=== PATIENT | male | born 1940 | race Hispanic/Latino ===

== ENCOUNTER 2017-07-08 23:38 | Emergency (ER) | payer MEDICARE, MEDICAID ==
--- NOTE | 2017-07-09 00:12 | Emergency Department Report ---
ED Fall HPI - General Chief Complaint: Fall Stated Complaint: FALL/HEAD INJURY Time Seen by Provider: 07/09/17 00:02 Source: EMS, old records reviewed Mode of arrival: Stretcher Limitations: Other - History of Present Illness Initial Comments: 77-year-old male with past medical history CVA, cognitive impairment, hypertension, and COPD presents to the hospital status post witnessed fall from a [facility] assisted. Fell striking the back of his head. He denies any pain. senior care confirms that the patient is at his baseline mental status and patient has cognitive impairment, impaired speech, and dysphagia . - Related Data Allergies Allergy/AdvReac Type Severity Reaction Status Date / Time No Known Allergies Allergy Verified 07/08/17 23:46 ED Review of Systems ROS: Stated complaint: FALL/HEAD INJURY Other details as noted in HPI Comment: Unobtainable due to pts medical conditions (cognitive impairment) ED Past Medical Hx - Past Medical History Hx Hypertension: Yes Hx CVA: Yes Hx COPD: Yes - Social History Smoking Status: Unknown if ever smoked Substance Use Type: None ED Physical Exam - General Limitations: Other - Other Other exam information: General: No limitations, patient is alert in no acute distress Head exam: Atraumatic, no hematoma or scalp tenderness Eyes exam: Normal appearance, pupils equal reactive to light ENT: Moist mucous membrane, normal oropharynx Neck exam: Normal inspection, full range of motion, no meningismus nontender Respiratory exam: Clear to auscultation bilateral, no wheezes, rales, crackles Cardiovascular: Normal rate and rhythm, midline sternotomy scar Abdomen: Soft, nondistended, vertical midline abdominal scar and nontender, with normal bowel sounds, no rebound, or guarding Extremity: Full range of motion normal inspection no deformity Back: Normal Inspection, full range of motion, no tenderness Neurologic: Alert, oriented a Amaya, no facial droop, mildly slurred speech 5/5 upper and lower extremity strength, sensation grossly intact Psychiatric: normal affect, normal mood Skin: No ecchymosis or contusion ED Course Vital Signs 07/08/17 07/09/17 23:39 00:21 Temperature 97.9 F Pulse Rate 67 Respiratory 18 16 Rate Blood Pressure 143/67 Blood Pressure 143/67 [Left] O2 Sat by Pulse 100 97 Oximetry ED Medical Decision Making - Radiology Data Radiology results: report reviewed ct head: chronic changes, no acute findings ct cervical spine: naf - Medical Decision Making Patient had a witnessed fall with occipital head injury at the assisted. No LOC reported. No signs of hematoma. CT head and cervical spine are unremarkable. senior care confirmed the patient is at his baseline mental status. He denies any pain. He will be sent back to assisted - Differential Diagnosis fall, contusion, fracture, ICH Critical Care Time: No Critical care attestation.: If time is entered above; I have spent that time in minutes in the direct care of this critically ill patient, excluding procedure time. ED Disposition Clinical Impression: Fall, Minor head injury Disposition: DC-01 TO HOME OR SELFCARE Is pt being admited?: No Does the pt Need Aspirin: No Condition: Stable Instructions: Fall Prevention for Older Adults (ED), Minor Head Injury (ED) Referrals: BAY GLEZ DO [Staff Physician] - 3-5 Days Time of Disposition: 02:42
--- NOTE | 2017-07-09 02:09 | Cat Scan Report ---
FINAL REPORT PROCEDURE: CT HEAD/BRAIN WO CON TECHNIQUE: Computerized tomography of the head was performed without contrast material. HISTORY: fall with head injury COMPARISON: No prior studies are available for comparison. FINDINGS: Skull and scalp: Normal. Paranasal sinuses: Normal. Ventricles and subarachnoid spaces: There is advanced central and cortical atrophy. There is no hydrocephalus or asymmetry.. Cerebrum: No evidence of hemorrhage, acute infarction or mass. There is no hemorrhage, edema, mass, mass effect or midline shift. Cerebellum and brainstem: No evidence of hemorrhage, acute infarction or mass. Vasculature: There is calcified plaque in the cavernous portions of the internal carotid arteries.. Comments: None. IMPRESSION: There are chronic involutional and ischemic changes. There is no hemorrhage, edema, mass, mass effect or midline shift.
--- NOTE | 2017-07-09 02:19 | Cat Scan Report ---
FINAL REPORT PROCEDURE: CT CERVICAL SPINE WO CON TECHNIQUE: Computerized tomography of the cervical spine was performed from the skull base to T1 without contrast material. HISTORY: fall with head injury COMPARISON: No prior studies are available for comparison. FINDINGS: The skull base and foramen magnum are intact. The cervical vertebrae are intact. There is normal cervical lordosis. There are no fractures or malalignments. The disc spaces are within normal limits. There is no facet dislocation. The prevertebral soft tissues are normal in thickness. IMPRESSION: No significant abnormality.
[2017-07-09 07:09] VITALS: BP 113/47
== END 2017-07-09 07:56 | disposition home or self-care (01) ==
LOC: ED 23:38
DX: S09.90XA Unspecified injury of head, initial encounter (principal); I10 Essential (primary) hypertension; J44.9 Chronic obstructive pulmonary disease, unspecified; Z86.73 Personal history of transient ischemic attack (TIA), and cerebral infarction without residual deficits; W18.30XA Fall on same level, unspecified, initial encounter; Y93.89 Activity, other specified; Y92.89 Other specified places as the place of occurrence of the external cause; Y99.8 Other external cause status
CPT/HCPCS: 70450; 72125; 99283

== ENCOUNTER 2017-08-12 16:06 | Inpatient (IN) | payer MEDICARE ==
--- NOTE | 2017-08-12 17:09 | Emergency Department Report ---
ED Altered Mental Status HPI - General Chief Complaint: Altered Mental Status Stated Complaint: FALL/ALTERED MENTAL STATUS Time Seen by Provider: 08/12/17 17:07 Source: patient Mode of arrival: Stretcher Limitations: Altered Mental Status - History of Present Illness Initial Comments: 77-year-old long-term patient sent for evaluation for altered mental status after sustaining fall approximately 5 days ago. Family reports that patient has history of dementia, and was placed in long-term almost a year ago after found wandering in his truck with progressive confusion, and was ordered into a long-term at that time. He has had progression of chronic confusion, but has generally been ambulatory, although family reports that he's been having increasing difficulty with ambulation, and has been falling, and that his bed has been placed at the lowest possible level, but the patient still has been falling. They found patient to be somewhat more confused, with more difficulty speaking, and were told that he had falling 5 days ago, with a contusion and ecchymosis to his right forehead and cheek, and bruising about both elbows, there was no clear-cut loss of consciousness, it was not clear if there was any change in mental status at that time, and family notes that patient was not sent for evaluation at that time. Family notes the patient primarily appears to be a little more confused, a little less oriented or awake, and speech is a little more dysarthric or frankly incoherent with significant mumbling. On my examination, patient is awake, and is able to give some generally appropriate answers to brief questions , but I am able to give any significant history other that he fell. Review of chart shows patient had similar episode in June 2017, with baseline dementia, also slurred speech noted at that time, with negative findings on CT scan and cervical spine CT scan. Complaint: altered mental status, confusion, decreased responsiveness -: days(s) (5) Severity: mild, moderate Consistency of Symptoms: constant Context: trauma (fall, low-level height, less than 1-2 feet) Associated Symptoms: other (elbow is bruised, nontender). denies: chest pain, cough, fever/chills, headaches, malaise, nausea/vomiting, shortness of breath - Related Data Allergies Allergy/AdvReac Type Severity Reaction Status Date / Time No Known Allergies Allergy Verified 07/08/17 23:46 ED Review of Systems ROS: Stated complaint: FALL/ALTERED MENTAL STATUS Other details as noted in HPI Comment: pertinent history obtained from family Constitutional: denies: chills, fever Eyes: denies: eye pain, eye discharge, vision change ENT: hearing loss (chronic), other (contusion to right forehead and cheek). denies: throat pain, congestion Respiratory: cough. denies: shortness of breath Cardiovascular: denies: chest pain Endocrine: unexplained weight loss (gradual, weeks to months). denies: excessive sweating, flushing, increased hunger, increased thirst, increased urine Gastrointestinal: denies: abdominal pain, nausea, vomiting Genitourinary: denies: urgency, dysuria Musculoskeletal: denies: myalgia Skin: other (abrasions to both elbows, contusion) Neurological: confusion (chronic, apparently worse), other (increased difficulty walking, since accident, but somewhat gradual decline since long-term placement) Psychiatric: other (chronic confusion, no anxiety or agitation) Hematological/Lymphatic: denies: easy bleeding ED Past Medical Hx - Past Medical History Previous Medical History?: Yes Hx Hypertension: Yes Hx CVA: Yes Hx COPD: Yes Hx Dementia: Yes (placed in long-term 10 months ago for chronic confusion) - Social History Smoking Status: Unknown if ever smoked ED Physical Exam - General Limitations: Altered Mental Status General appearance: other (appears sleeping, arouses easily, hard of hearing, able to make brief appropriate answers) - Head Head exam: Present: atraumatic, other (nontender, without laceration) - Eye Eye exam: Present: PERRL - ENT ENT exam: Present: other (ecchymosis right cheek area, with some extension towards the right lateral or head) - Neck Neck exam: Present: normal inspection, other (reduce movement, chronic, somewhat limited movement in all directions). Absent: tenderness - Respiratory Respiratory exam: Present: wheezes (rare), rhonchi (primarily with cough) - Cardiovascular Cardiovascular Exam: Present: regular rate (with intermittent and moderate PVC, PAC) - GI/Abdominal GI/Abdominal exam: Present: soft. Absent: distended, tenderness - Rectal Rectal exam: Present: deferred - Extremities Exam Extremities exam: Present: other (ecchymosis and superficial skin abrasions noted lateral epicondyle, both elbows, good range of motion). Absent: tenderness - Back Exam Back exam: Present: normal inspection. Absent: tenderness - Neurological Exam Neurological exam: Present: altered (awake in general responsive, confused in general, gives brief answers only) - Psychiatric Psychiatric exam: Present: other (quiet, somewhat withdrawn in general) - Skin Skin exam: Present: abrasion (both elbows), ecchymosis (both elbows, right cheek ) - Level of Consciousness 1a. Level of Consciousness: alert - LOC Questions 1b. LOC Questions: answers 1 question correctly - LOC Command 1c. LOC Commands: performs tasks correctly - Best Gaze 2. Best Gaze: normal - Visual 3. Visual: no visual loss - Facial Palsy 4. Facial Palsy: normal symmetrical movement - Motor Arm 5b. Motor Arm Right: no drift 5a. Motor Arm Left: no drift - Motor Leg 6a. Motor Leg Left: no drift 6b. Motor Leg Right: no drift - Limb Ataxia 7. Limb Ataxia: absent - Sensory 8. Sensory: normal - Best Language 9. Best Language: no aphasia - Dysarthria 10. Dysarthria: mild/moderate dysarthria (Primarily dysarthria, some confused speech.) - Extinction and Inattention 11. Extinction/Inattention: visual/tactile inattention (Mild) - Scoring Total Score: 3 Stroke Severity: Minor Stroke ED Course Vital Signs 08/12/17 08/12/17 08/12/17 16:15 16:16 16:31 Pulse Rate 85 86 103 H Respiratory 16 17 15 Rate Blood Pressure 134/77 134/77 143/77 O2 Sat by Pulse 93 97 Oximetry 08/12/17 08/12/17 08/12/17 16:45 17:01 17:15 Pulse Rate 89 81 82 Respiratory 18 13 12 Rate Blood Pressure 143/77 144/75 144/75 O2 Sat by Pulse 95 90 Oximetry 08/12/17 17:40 Pulse Rate Respiratory 18 Rate Blood Pressure O2 Sat by Pulse 96 Oximetry - Reevaluation(s) Reevaluation #1: 08/12/17 18:59 Patient is clinically stable, sleeping at time of evaluation, respirations are stable, with oxygen saturation of 92% on 2 L of oxygen. I discussed findings suggestive of right lower lobe pneumonia and significant inflammation on white count, with need for hospitalization and IV antibiotics. Initial fluid hydration begun, but given patient's generally debilitated state and advanced COPD, I don't believe that he would tolerate a full sepsis rehydration protocol of 30 mL/kg without developing significant pulmonary congestion. 08/12/17 19:00 - Consultations Consultation #1: 08/12/17 19:07 Dr. Narayanan, hospitalist sanitation superintendent contacted with findings of right lower lobe pneumonia and negative evaluation for acute trauma as cause of altered mental status, patient appears to be neurologically stable, primarily by current examination and comparison with previous visit for fall 1 month ago. However, patient has a right lower lobe pneumonia, with an elevated white count of 13,400 , and significant bandemia of 70 segs and 25 bands. He accepts patient and will come to see, and blood cultures have been drawn and lactic acid levels drawn as well. Modest fluid rehydration ordered, with 500 mL, as given patient' s age and fragile general physical status, I don't believe that he would tolerate a full 30 mL/kg rehydration for sepsis measures. - Lab Data Result diagrams: 08/12/17 17:18 08/12/17 17:18 Lab Results 08/12/17 08/12/17 08/12/17 Range/Units 16:50 16:50 17:18 WBC 13.4 H (4.5-11.0) K/mm3 RBC 4.07 (3.65-5.03) M/mm3 Hgb 12.3 (11.8-15.2) gm/dl Hct 38.1 (35.5-45.6) % MCV 94 (84-94) fl MCH 30 (28-32) pg MCHC 32 (32-34) % RDW 14.2 (13.2-15.2) % Plt Count 132 L (140-440) K/mm3 Add Manual Diff Complete Total Counted 100 Seg Neutrophils % Associate Financial Analyst Seg Neuts % (Manual) 70.0 (40.0-70.0) % Band Neutrophils % 25.0 % Lymphocytes % (Manual) 1.0 L (13.4-35.0) % Reactive Lymphs % (Man) 0 % Monocytes % (Manual) 4.0 (0.0-7.3) % Eosinophils % (Manual) 0 (0.0-4.3) % Basophils % (Manual) 0 (0.0-1.8) % Metamyelocytes % 0 % Myelocytes % 0 % Promyelocytes % 0 % Blast Cells % 0 % Nucleated RBC % Not Reportable Seg Neutrophils # Man 9.4 H (1.8-7.7) K/mm3 Band Neutrophils # 3.4 K/mm3 Lymphocytes # (Manual) 0.1 L (1.2-5.4) K/mm3 Abs React Lymphs (Man) 0.0 K/mm3 Monocytes # (Manual) 0.5 (0.0-0.8) K/mm3 Eosinophils # (Manual) 0.0 (0.0-0.4) K/mm3 Basophils # (Manual) 0.0 (0.0-0.1) K/mm3 Metamyelocytes # 0.0 K/mm3 Myelocytes # 0.0 K/mm3 Promyelocytes # 0.0 K/mm3 Blast Cells # 0.0 K/mm3 WBC Morphology Not Reportable Hypersegmented Neuts Not Reportable Hyposegmented Neuts Not Reportable Hypogranular Neuts Not Reportable Smudge Cells Not Reportable Toxic Granulation Not Reportable Toxic Vacuolation Not Reportable Dohle Bodies Not Reportable Pelger-Huet Anomaly Not Reportable Hugh Rods Not Reportable Platelet Estimate Consistent w auto Clumped Platelets Not Reportable Plt Clumps, EDTA Not Reportable Large Platelets Not Reportable Giant Platelets Not Reportable Platelet Satelliting Not Reportable Plt Morphology Comment Not Reportable RBC Morphology Normal Dimorphic RBCs Not Reportable Polychromasia Not Reportable Hypochromasia Not Reportable Poikilocytosis Not Reportable Anisocytosis Not Reportable Microcytosis Not Reportable Macrocytosis Not Reportable Spherocytes Not Reportable Pappenheimer Bodies Not Reportable Sickle Cells Not Reportable Target Cells Not Reportable Tear Drop Cells Not Reportable Ovalocytes Not Reportable Helmet Cells Not Reportable [place] Bodies Not Reportable [place] Rings Not Reportable [place] Cells Not Reportable Bite Cells Not Reportable Crenated Cell Not Reportable Elliptocytes Not Reportable Acanthocytes (Spur) Not Reportable Rouleaux Not Reportable Hemoglobin C Crystals Not Reportable Schistocytes Not Reportable Malaria parasites Not Reportable [place] Bodies Not Reportable Hem Pathologist Commnt No Sodium (137-145) mmol/L Potassium (3.6-5.0) mmol/L Chloride (98-107) mmol/L Carbon Dioxide (22-30) mmol/L Anion Gap mmol/L BUN (9-20) mg/dL Creatinine (0.8-1.5) mg/dL Estimated GFR ml/min BUN/Creatinine Ratio % Glucose (75-100) mg/dL Calcium (8.4-10.2) mg/dL Total Bilirubin (0.1-1.2) mg/dL AST (5-40) units/L ALT (7-56) units/L Alkaline Phosphatase (35-129) units/L Total Protein (6.3-8.2) g/dL Albumin (3.9-5) g/dL Albumin/Globulin Ratio % TSH (0.270-4.200) mlU/mL Urine Color Yellow (Yellow) Urine Turbidity Clear (Clear) Urine pH 5.0 (5.0-7.0) Ur Specific [place] 1.019 (1.003-1.030) Urine Protein 100 mg/dl (Negative) mg/dL Urine Glucose (UA) 50 (Negative) mg/dL Urine Ketones Neg (Negative) mg/dL Urine Blood Mod (Negative) Urine Nitrite Neg (Negative) Urine Bilirubin Neg (Negative) Urine Urobilinogen < 2.0 (<2.0) mg/dL Ur Leukocyte Esterase Sm (Negative) Urine WBC (Auto) 24.0 H (0.0-6.0) /HPF Urine RBC (Auto) 13.0 (0.0-6.0) /HPF Urine Bacteria (Auto) 4+ (Negative) /HPF Urine Mucus 3+ /HPF Urine Opiates Screen Presumptive negative Urine Methadone Screen Presumptive negative Ur Barbiturates Screen Presumptive negative Ur Phencyclidine Scrn Presumptive negative Ur Amphetamines Screen Presumptive negative U Benzodiazepines Scrn Presumptive negative Urine Cocaine Screen Presumptive negative U Marijuana (THC) Screen Presumptive negative Drugs of Abuse Note Disclamer Plasma/Serum Alcohol (0-0.07) % 08/12/17 08/12/17 08/12/17 Range/Units 17:18 17:18 17:18 WBC (4.5-11.0) K/mm3 RBC (3.65-5.03) M/mm3 Hgb (11.8-15.2) gm/dl Hct (35.5-45.6) % MCV (84-94) fl MCH (28-32) pg MCHC (32-34) % RDW (13.2-15.2) % Plt Count (140-440) K/mm3 Add Manual Diff Total Counted Seg Neutrophils % Seg Neuts % (Manual) (40.0-70.0) % Band Neutrophils % % Lymphocytes % (Manual) (13.4-35.0) % Reactive Lymphs % (Man) % Monocytes % (Manual) (0.0-7.3) % Eosinophils % (Manual) (0.0-4.3) % Basophils % (Manual) (0.0-1.8) % Metamyelocytes % % Myelocytes % % Promyelocytes % % Blast Cells % % Nucleated RBC % Seg Neutrophils # Man (1.8-7.7) K/mm3 Band Neutrophils # K/mm3 Lymphocytes # (Manual) (1.2-5.4) K/mm3 Abs React Lymphs (Man) K/mm3 Monocytes # (Manual) (0.0-0.8) K/mm3 Eosinophils # (Manual) (0.0-0.4) K/mm3 Basophils # (Manual) (0.0-0.1) K/mm3 Metamyelocytes # K/mm3 Myelocytes # K/mm3 Promyelocytes # K/mm3 Blast Cells # K/mm3 WBC Morphology Hypersegmented Neuts Hyposegmented Neuts Hypogranular Neuts Smudge Cells Toxic Granulation Toxic Vacuolation Dohle Bodies Pelger-Huet Anomaly Hugh Rods Platelet Estimate Clumped Platelets Plt Clumps, EDTA Large Platelets Giant Platelets Platelet Satelliting Plt Morphology Comment RBC Morphology Dimorphic RBCs Polychromasia Hypochromasia Poikilocytosis Anisocytosis Microcytosis Macrocytosis Spherocytes Pappenheimer Bodies Sickle Cells Target Cells Tear Drop Cells Ovalocytes Helmet Cells [place] Bodies [place] Rings [place] Cells Bite Cells Crenated Cell Elliptocytes Acanthocytes (Spur) Rouleaux Hemoglobin C Crystals Schistocytes Malaria parasites [place] Bodies Hem Pathologist Commnt Sodium 134 L (137-145) mmol/L Potassium 4.3 (3.6-5.0) mmol/L Chloride 95.4 L (98-107) mmol/L Carbon Dioxide 22 (22-30) mmol/L Anion Gap 21 mmol/L BUN 48 H (9-20) mg/dL Creatinine 1.9 H (0.8-1.5) mg/dL Estimated GFR 35 ml/min BUN/Creatinine Ratio 25 % Glucose 135 H (75-100) mg/dL Calcium 8.7 (8.4-10.2) mg/dL Total Bilirubin 0.40 (0.1-1.2) mg/dL AST 26 (5-40) units/L ALT 29 (7-56) units/L Alkaline Phosphatase 108 (35-129) units/L Total Protein 6.4 (6.3-8.2) g/dL Albumin 3.2 L (3.9-5) g/dL Albumin/Globulin Ratio 1.0 % TSH 1.340 (0.270-4.200) mlU/mL Urine Color (Yellow) Urine Turbidity (Clear) Urine pH (5.0-7.0) Ur Specific [place] (1.003-1.030) Urine Protein (Negative) mg/dL Urine Glucose (UA) (Negative) mg/dL Urine Ketones (Negative) mg/dL Urine Blood (Negative) Urine Nitrite (Negative) Urine Bilirubin (Negative) Urine Urobilinogen (<2.0) mg/dL Ur Leukocyte Esterase (Negative) Urine WBC (Auto) (0.0-6.0) /HPF Urine RBC (Auto) (0.0-6.0) /HPF Urine Bacteria (Auto) (Negative) /HPF Urine Mucus /HPF Urine Opiates Screen Urine Methadone Screen Ur Barbiturates Screen Ur Phencyclidine Scrn Ur Amphetamines Screen U Benzodiazepines Scrn Urine Cocaine Screen U Marijuana (THC) Screen Drugs of Abuse Note Plasma/Serum Alcohol < 0.01 (0-0.07) % - EKG Data -: EKG Interpreted by Me EKG shows normal: sinus rhythm (poor technical quality, no acute findings, significant primarily for LVH, PVC, PACs), axis (QRS axis 12), intervals ( regular at baseline with intermittent PVCs), QRS complexes (neuro complex with occasional PVC, PAC), ST-T waves (no specific changes, no STEMI identified) Rate: normal - Radiology Data Radiology results: image reviewed (chest x-ray shows a right lower lobe pneumonia) interpreted by me: Both elbow films negative for acute fracture or dislocation. CT scan of brain shows no acute fracture or acute intracranial process CT scan of face also shows no acute fracture - Medical Decision Making This elderly man, with baseline dementia, has suffered deterioration of mental status, which was initially felt to be due to fall, but trauma evaluation is negative given stable CT scan of the head and face, with no acute fractures and no acute intracranial pathology, although prior left mid parietal stroke has been seen with volume loss and encephalomalacia. However, patient has right lower lobe pneumonia with a new infiltrate in the right lower lobe of the lung, with elevated white count and significant bandemia. This is likely cause of patient's decline in mental status. He will need hospitalization, with IV antibiotics area initial blood pressures were drawn, along with lactic acid levels, and Dr. Narayanan will evaluate patient and provide additional care from there. - Differential Diagnosis traumatic brain injury, subdural hematoma, dehydration, progression of mone - NEXUS Criteria Focal neurological deficit present: No Midline spinal tenderness present: No Altered level of consciousness: Yes Intoxication present: No Distracting injury present: No NEXUS results: C-Spine cannot be cleared clinically by these results. Imaging is required. Critical Care Time: Yes Critical care attestation.: If time is entered above; I have spent that time in minutes in the direct care of this critically ill patient, excluding procedure time. Critical Care Time: 30 minutes of critical care time, exclusive of any procedures ED Disposition Clinical Impression: Elbow abrasion, non-infected Pneumonia Qualifiers: Pneumonia type: due to unspecified organism Laterality: right Lung location: lower lobe of lung Qualified Code(s): J18.1 - Lobar pneumonia, unspecified organism Dementia Qualifiers: Dementia type: unspecified type Dementia behavioral disturbance: without behavioral disturbance Qualified Code(s): F03.90 - Unspecified dementia without behavioral disturbance Contusion of face Qualifiers: Encounter type: initial encounter Qualified Code(s): S00.83XA - Contusion of other part of head, initial encounter Disposition: 09 OP ADMIT IP TO THIS HOSP Is pt being admited?: Yes Does the pt Need Aspirin: No Condition: Fair Instructions: Bacterial Pneumonia (ED) Referrals: PRIMARY CARE, [Primary Care Provider] - 3-5 Days Time of Disposition: 19:12
[2017-08-12 17:13] LABS: Bacteria,Urine 4+ /HPF (Negative); Bilirubin,Urine NEG (Negative); Blood,Urine MOD (Negative); Color,Urine Yellow (Yellow); Mucus,Urine 3+ /HPF; Urobilinogen,Urine < 2.0 mg/dL (<2.0)
[2017-08-12 17:22] LABS: Amphetamine Screen,Urine PRESUMPTIVE NEGATIVE; Benzodiazepines Screen,Urine PRESUMPTIVE NEGATIVE; Cannabinoid Screen,Urine PRESUMPTIVE NEGATIVE; Cocaine Screen,Urine PRESUMPTIVE NEGATIVE; Methadone Screen,Urine PRESUMPTIVE NEGATIVE; Opiate Screen,Urine PRESUMPTIVE NEGATIVE
[2017-08-12 17:28] LABS: Hematocrit 38.1 % (35.5-45.6); Hemoglobin 12.3 gm/dl (11.8-15.2); Mean Corpuscular HGB Conc 32 % (32-34); Mean Corpuscular Hemoglobin 30 pg (28-32); Mean Corpuscular Volume 94 fl (84-94); Platelet Count 132 K/mm3 (140-440); Red Blood Count 4.07 M/mm3 (3.65-5.03); Red Cell Distribution Width 14.2 % (13.2-15.2)
[2017-08-12 17:51] LABS: Albumin 3.2 g/dL (3.9-5); Calcium 8.7 mg/dL (8.4-10.2)
[2017-08-12 18:09] LABS: Band Neutrophils # (Manual) 3.4 K/mm3; Basophils % (Manual) 0 % (0.0-1.8); Eosinophils % (Manual) 0 % (0.0-4.3); Total Cells Counted 100
[2017-08-12 18:18] LABS: Platelet Estimate Consistent w Auto; RBC Morphology Normal
--- NOTE | 2017-08-12 18:23 | Cat Scan Report ---
FINAL REPORT EXAM: CT HEAD/BRAIN WO CON HISTORY: AMS, s/p fall 5 days TECHNIQUE: Noncontrast CT axial images of the brain. PRIORS: 08 July 2017. FINDINGS: No parenchymal mass, mass effect, hemorrhage, midline shift or hydrocephalus. No evidence of acute cortical infarct. No abnormal, extra-axial fluid or air collection. Mild, patchy low density in the periventricular and subcortical white matter is nonspecific, but may relate to chronic small vessel ischemic change. Diffuse volume loss. Osseous calvarium grossly intact. IMPRESSION: 1. No acute intracranial findings. 2. Chronic ischemic and atrophic changes.
--- NOTE | 2017-08-12 18:26 | Cat Scan Report ---
FINAL REPORT EXAM: CT FACIAL BONES WO CON HISTORY: trauma, fall TECHNIQUE: Spiral CT scanning of the facial bones with multiplanar reformations. PRIORS: None. FINDINGS: No acute fracture. Mandible, zygomatic arches, orbits, paranasal sinuses, and pterygoid plates appear intact. Optic globes grossly intact. IMPRESSION: 1. No acute fracture.
[2017-08-12] MEDS ORDERED: NACL 0.9% 500 ML 500 ML IV ONE (18:50)
--- NOTE | 2017-08-12 19:09 | History and Physical Report ---
History of Present Illness Chief complaint: Confusion History of present illness: 77 YO Male [employer] Resident with Dementia, Debility, HTN, CVA with RHP, COPD presents to ED for evaluation. Pt confused and unable to provide detailed history. Pt history taken from ED staff, EMS, and family who is at bedside. As per family, the patient has experienced progressive confusion and weakness over the past 3 weeks, with worsening symptoms over the past 5 days which resulted in a fall 5 days ago. Pt sustained contusion with ecchymosis to the right forehead and cheek. Pt family denies reports of fever, chills, CP, Palpitations , NVD, syncope, BRBPR, or skin rashes. Pt seen and evaluated in ED and found to have evidence of sepsis suspected secondary to RLL Pneumonia, UTI and Acute Renal Failure. Pt is confused but is able to protect his airway. Pt initiated on Sepsis protocol. Past History Past Medical History: COPD, hypertension, stroke, other (Dementia) Past Surgical History: No surgical history, Other (reviewed) Social history: single. denies: smoking, alcohol abuse, prescription drug abuse Family history: no significant family history (reviewed) Medications and Allergies Allergies Allergy/AdvReac Type Severity Reaction Status Date / Time No Known Allergies Allergy Verified 07/08/17 23:46 Home Medications Medication Instructions Recorded Confirmed Last Taken Type ALBUTEROL NEB's [Proventil] 2.5 mg IH Q4HR PRN 08/12/17 08/12/17 Unknown History Acetaminophen 325 mg PO Q4HR PRN 08/12/17 08/12/17 Unknown History Aspirin 81 mg PO QDAY 08/12/17 08/12/17 Unknown History Donepezil [Aricept] 10 mg PO QHS 08/12/17 08/12/17 Unknown History Mirtazapine 15 mg PO QHS 08/12/17 08/12/17 Unknown History Sennosides [Senna] 8.6 mg PO QHS 08/12/17 08/12/17 Unknown History Simvastatin [Zocor TAB] 10 mg PO QHS 08/12/17 08/12/17 Unknown History Temazepam [Restoril] 15 mg PO QHS 08/12/17 08/12/17 Unknown History amLODIPine [Norvasc] 10 mg PO DAILY 08/12/17 08/12/17 Unknown History Active Meds: Active Medications Sodium Chloride (Nacl 0.9% 500 Ml) 500 mls @ 999 mls/hr IV ONCE ONE Stop: 08/12/17 19:20 Last Admin: 08/12/17 19:05 Dose: 999 mls/hr Review of Systems ROS unobtainable: due to mental status Exam - Constitutional Vitals: Temp Pulse Resp BP Pulse Ox 82 18 144/75 96 08/12/17 17:15 08/12/17 17:40 08/12/17 17:15 08/12/17 17:40 General appearance: Present: mild distress - EENT Eyes: Present: PERRL ENT: hearing intact, clear oral mucosa - Neck Neck: Present: supple, normal ROM - Respiratory Respiratory effort: normal Respiratory: bilateral: diminished, rhonchi - Cardiovascular Heart Sounds: Present: S1 & S2. Absent: rub, click - Extremities Extremities: pulses symmetrical, No edema Peripheral Pulses: abnormal (capillary refill greater than 3.6 seconds.) - Abdominal General gastrointestinal: Present: soft, non-tender, non-distended, normal bowel sounds Male genitourinary: Present: normal - Integumentary Integumentary: Present: clear, warm, dry - Musculoskeletal Musculoskeletal: right sided weakness - Psychiatric Psychiatric: no intact judgment & insight, no memory intact - Neurologic Neurologic: focal deficits, no moves all extremities, no gait normal Results - Labs CBC & Chem 7: 08/12/17 17:18 08/12/17 17:18 Labs: Abnormal lab results 08/12/17 08/12/17 08/12/17 Range/Units 16:50 17:18 17:18 WBC 13.4 H (4.5-11.0) K/mm3 Plt Count 132 L (140-440) K/mm3 Lymphocytes % (Manual) 1.0 L (13.4-35.0) % Seg Neutrophils # Man 9.4 H (1.8-7.7) K/mm3 Lymphocytes # (Manual) 0.1 L (1.2-5.4) K/mm3 Sodium 134 L (137-145) mmol/L Chloride 95.4 L (98-107) mmol/L BUN 48 H (9-20) mg/dL Creatinine 1.9 H (0.8-1.5) mg/dL Glucose 135 H (75-100) mg/dL Albumin 3.2 L (3.9-5) g/dL Urine WBC (Auto) 24.0 H (0.0-6.0) /HPF Assessment and Plan - Patient Problems (1) Respiratory failure Current Visit: Yes Status: Acute Qualifiers: Chronicity: acute Respiratory failure complication: hypoxia Qualified Code(s): J96.01 - Acute respiratory failure with hypoxia Plan to address problem: Pt intubated, placed on vent support, Pulmonary consulted, wean vent as tolerated, daily ABG, sedation holiday, daily SBT, The high probability of a clinically significant, sudden or life threatening deterioration of the[Cardiac, pulmonary, renal] system(s) required my full and direct attention, intervention and personal management. The aggregate critical care time was [65] minutes. This time is in addition to time spent performing reported procedures but includes the following: [x] Data Review and interpretation [x] Patient assessment and monitoring of vital signs [x] Documentation [x] Medication orders and management (2) Sepsis Current Visit: Yes Status: Acute Qualifiers: Sepsis type: sepsis due to unspecified organism Qualified Code(s): A41.9 - Sepsis, unspecified organism Plan to address problem: Sepsis protocol: IV antibiotics, IVF resuscitation, monitor uop q shift, supplemental oxygen, nebulizer therapy, serial lactic acid levels, blood cultures, Chest X ray, CBC (3) Pneumonia Current Visit: Yes Status: Acute Qualifiers: Laterality: right Lung location: lower lobe of lung Plan to address problem: IV antibiotics, supplemental oxygen, nebulizer therapy, Chest x ray, blood cultures, NIPPV as clinically indicated (4) ARF (acute renal failure) Current Visit: Yes Status: Acute Qualifiers: Acute renal failure type: with acute tubular necrosis Qualified Code(s): N17.0 - Acute kidney failure with tubular necrosis Plan to address problem: IVF resuscitation, monitor uop q shift, monitor serum creatnine. (5) Encephalopathy Current Visit: Yes Status: Acute Plan to address problem: CT head, neuro checks, treat sepsis, (6) UTI (urinary tract infection) Current Visit: Yes Status: Acute Qualifiers: Encounter type: initial encounter Plan to address problem: IV antibiotics, blood cultures, supportive care. (7) DVT prophylaxis Current Visit: Yes Status: Acute Plan to address problem: SCD to ble while in bed,
[2017-08-12] MEDS ORDERED: ZOFRAN IV PRN (19:11)
[2017-08-12] MEDS ORDERED: PROVENTIL IH PRN (19:11)
[2017-08-12] MEDS ORDERED: SODIUM CHLORIDE FLUSH SYRINGE 10 ML IV PRN (19:11)
[2017-08-12] MEDS ORDERED: TYLENOL PO PRN (19:11)
[2017-08-12] MEDS ORDERED: NACL 0.9% 1000 ML IV ONE (19:13)
[2017-08-12] MEDS ORDERED: ROCEPHIN/NS 1 GM/50 ML 1 GM/50 ML BAG IV ONE (19:48)
--- NOTE | 2017-08-12 19:57 | XRay Report ---
FINAL REPORT EXAM: XR CHEST 1V AP HISTORY: cough TECHNIQUE: Single, portable chest x-ray. PRIORS: None. FINDINGS: Patient rotated to the right. Postsurgical changes project over the heart. Tortuous and partially calcified thoracic aorta. Cardiac silhouette within normal limits. Lungs show patchy and partially confluent opacities projected over right lower lung. No other focal consolidation or apparent pneumothorax. IMPRESSION: 1. Right lower lung patchy opacities or infiltrate, which may represent acute inflammatory process. Clinical correlation and radiographic followup after 4-6 weeks advised to document resolution.
--- NOTE | 2017-08-12 19:58 | XRay Report ---
FINAL REPORT EXAM: XR ELBOW 2V RT HISTORY: injury, fall TECHNIQUE: Frontal and lateral views of right elbow. PRIORS: None. FINDINGS: Mild marginal spurring off medial and lateral humeral epicondyles. No apparent fracture or dislocation. No abnormal fat pad sign. Soft tissues grossly unremarkable. IMPRESSION: 1. No acute osseous abnormality. 2. Degenerative changes.
[2017-08-12] MEDS ORDERED: cefTRIAXone 1 GM in NACL 0.9% 20 ML IV ONE (20:00)
--- NOTE | 2017-08-12 20:01 | XRay Report ---
FINAL REPORT EXAM: XR ELBOW 2V LT HISTORY: fall, injury TECHNIQUE: Single, portable chest x-ray. PRIORS: Earlier on same date at 1903 hours. FINDINGS: Patient rotated to the right. Postsurgical changes again project over the heart. Tortuous and partially calcified thoracic aorta. Cardiac silhouette within normal limits. Lungs again show patchy and partially confluent opacities projected over right lower lung. No other focal consolidation or apparent pneumothorax. Bony thorax without acute osseous abnormality. IMPRESSION: 1. Right lower lung patchy opacities or infiltrate, which may represent acute inflammatory process similar to comparison. Clinical correlation and radiographic followup after 4-6 weeks advised to document resolution.
[2017-08-12] MEDS ORDERED: NACL 0.9% 1000 ML 1,000 ML ONE (20:29)
--- NOTE | 2017-08-12 22:58 | Event Note ---
Date: 08/12/17 Code met was called on patient just as he was brought up from emergency room for admission, the nurse noted that patient was less responsive without the O2 saturation detected. On arrival at patient's room, patient was found to be obtunded and was being attended by the respiratory therapist who was administering oxygen to patient and vital signs shows difficult to detect oxygen saturation with heart rate running up to 90 to100 . Patient was intubated because of decreased responsiveness and transferred to the unit, sedation will be maintained with propofol IV and ABG has been ordered. Patient will continue IV antibiotic for the treatment of pneumonia that was ordered for his admission.
[2017-08-12] MEDS ORDERED: ARTIFICIAL TEARS OPHTH OINT OU PRN (23:14)
[2017-08-12] MEDS ORDERED: VASELINE LIP THERAPY TP PRN (23:14)
[2017-08-12] MEDS ORDERED: NACL 0.9% 500 ML IV SCH (23:45)
[2017-08-13] MEDS: DIPRIVAN 10 MG/ML 1,000 MG/100 ML BOTTLE IV SCH ×2 (00:15→12:37)
[2017-08-13] MEDS: SODIUM CHLORIDE FLUSH SYRINGE 10 ML IV SCH ×3 (00:27→22:30)
--- NOTE | 2017-08-13 00:40 | XRay Report ---
FINAL REPORT EXAM: XR CHEST 1V AP HISTORY: INTUBATION TECHNIQUE: Single AP portable radiograph of the chest was obtained. PRIORS: Chest radiograph from earlier the same day. FINDINGS: Interval placement of an endotracheal tube, tip is located 4.7 cm proximal to the talita. Right lower lobe consolidation with probable small effusion noted. Left lung is hyperexpanded without focal consolidation or, pleural effusion or pneumothorax. Marked tortuosity and atherosclerotic vascular calcifications of the aorta. Median sternotomy and coronary artery bypass grafting changes. Diffuse decreased osseous mineralization, no acute osseous abnormality is identified. IMPRESSION: Interval endotracheal tube placement, the tip is located 4.7 cm proximal to the talita. Right lower lobe consolidation, findings appear mildly increased from the comparison exam. Left lung is clear noting hyperinflation.
[2017-08-13] MEDS: ZITHROMAX 500 MG in NACL 0.9% 250ML 250 ML IV SCH (09:27)
[2017-08-13] MEDS ORDERED: ROCEPHIN/NS 1 GM/50 ML 1 GM/50 ML BAG IV SCH (10:00)
[2017-08-13] MEDS ORDERED: PEPCID IV SCH (10:00)
--- NOTE | 2017-08-13 12:54 | Consultation ---
History of Present Illness Consult date: 08/13/17 History of present illness: Called to evaluate case of a 77-year-old male, currently intubated at the ICU, after the patient was transferred from the medical servin intubated. Somewhat responsive but on propofol sedation so history is obtained from staff and chart review. Per record, " 77 YO Male [facility] Resident with Dementia, Debility, HTN, CVA with RHP, COPD presents to ED for evaluation. Pt confused and unable to provide detailed history. Pt history taken from ED staff, EMS, and family who is at bedside. As per family, the patient has experienced progressive confusion and weakness over the past 3 weeks, with worsening symptoms over the past 5 days which resulted in a fall 5 days ago. Pt sustained contusion with ecchymosis to the right forehead and cheek. Pt family denies reports of fever, chills, CP, Palpitations, NVD, syncope, BRBPR, or skin rashes. Pt seen and evaluated in ED and found to have evidence of sepsis suspected secondary to RLL Pneumonia, UTI and Acute Renal Failure. Pt is confused but is able to protect his airway. Pt initiated on Sepsis protocol". Once the medical servin, the patient became distressed and obtunded. In view of poor oxygen saturation and for aggressive distress, he was intubated and then transferred to the ICU. We are asked to review for her pulmonary ICU management No family members available at the bedside Past History Past Medical History: COPD, hypertension, stroke, other (Dementia) Past Surgical History: No surgical history, Other (reviewed) Social history: single. denies: smoking, alcohol abuse, prescription drug abuse Family history: no significant family history (reviewed) Medications and Allergies Allergies Allergy/AdvReac Type Severity Reaction Status Date / Time No Known Allergies Allergy Verified 07/08/17 23:46 Home Medications Medication Instructions Recorded Confirmed Last Taken Type ALBUTEROL NEB's [Proventil] 2.5 mg IH Q4HR PRN 08/12/17 08/12/17 Unknown History Acetaminophen 325 mg PO Q4HR PRN 08/12/17 08/12/17 Unknown History Aspirin 81 mg PO QDAY 08/12/17 08/12/17 Unknown History Donepezil [Aricept] 10 mg PO QHS 08/12/17 08/12/17 Unknown History Mirtazapine 15 mg PO QHS 08/12/17 08/12/17 Unknown History Sennosides [Senna] 8.6 mg PO QHS 08/12/17 08/12/17 Unknown History Simvastatin [Zocor TAB] 10 mg PO QHS 08/12/17 08/12/17 Unknown History Temazepam [Restoril] 15 mg PO QHS 08/12/17 08/12/17 Unknown History amLODIPine [Norvasc] 10 mg PO DAILY 08/12/17 08/12/17 Unknown History Active Meds: Active Medications Acetaminophen (Tylenol) 650 mg PO Q4H PRN PRN Reason: Pain MILD(1-3)/Fever >100.5/PARDO Albuterol (Proventil) 2.5 mg IH Q4HRT PRN PRN Reason: Shortness Of Breath Famotidine (Pepcid) 20 mg IV DAILY [facility] Last Admin: 08/13/17 09:29 Dose: 20 mg Hydrophilic Ointment (Vaseline Lip Therapy) 1 applic TP Q2HR PRN PRN Reason: Dry Lips Azithromycin 500 mg/ Sodium (Chloride) 250 mls @ 250 mls/hr IV Q24HR ROSSANA; Protocol Last Admin: 08/13/17 09:27 Dose: 250 mls/hr Propofol (Diprivan 10 Mg/Ml) 1,000 mg in 100 mls @ 1.769 mls/hr IV TITR ROSSANA; Protocol Last Admin: 08/13/17 12:37 Dose: 12.71 mcg/kg/min, 4.5 mls/hr Sodium Chloride (Nacl 0.9% 1000 Ml) 1,000 mls @ 75 mls/hr IV DIRECT ROSSANA Last Admin: 08/13/17 00:00 Dose: 75 mls/hr Ceftriaxone Sodium 1 gm/ (Sodium Chloride) 20 mls @ 2 mls/min IV Q24HR [facility] Multi-Ingred Cream/Lotion/Oil/Oint (Artificial Tears Ophth Oint) 1 applic OU Q4HR PRN PRN Reason: Dry Eye(s) Ondansetron HCl (Zofran) 4 mg IV Q8H PRN PRN Reason: Nausea And Vomiting Sodium Chloride (Sodium Chloride Flush Syringe 10 Ml) 10 ml IV BID [facility] Last Admin: 08/13/17 09:27 Dose: 10 ml Sodium Chloride (Sodium Chloride Flush Syringe 10 Ml) 10 ml IV PRN PRN PRN Reason: LINE FLUSH Sodium Chloride (Nacl 0.9% 500 Ml) 1 ml IV DIRECT ROSSANA Review of Systems ROS unobtainable: due to endotracheal tube, due to mental status Physical Examination Vital signs: Vital Signs Pulse Resp BP 85 16 134/77 08/12/17 16:15 08/12/17 16:15 08/12/17 16:15 General appearance: no acute distress, appears uncomfortable Eyes: non-icteric ENT: oropharynx moist Neck: supple, no JVD Ascultation: Right: rales, rhonchi, Left: clear Cardiovascular: regular rate and rhythm Gastrointestinal: normoactive bowel sounds, non-distended Integumentary: normal Extremities: no cyanosis Musculoskeletal: no deformities non-focal exam, other (on 4 point restraints, RASS 0 to -1) Results - Laboratory Findings CBC and BMP: 08/12/17 17:18 08/12/17 17:18 ABG POC ABG pH 7.337 (7.35-7.45) L 08/13/17 04:27 POC ABG pCO2 34.5 (35-45) L 08/13/17 04:27 POC ABG pO2 105 (80-105) 08/13/17 04:27 POC ABG HCO3 18.5 08/13/17 04:27 POC ABG Total CO2 20 08/13/17 04:27 POC ABG O2 Sat 98 08/13/17 04:27 Abnormal lab findings: Abnormal Labs 08/12/17 08/12/17 08/12/17 16:50 17:18 17:18 WBC 13.4 H Plt Count 132 L Lymphocytes % (Manual) 1.0 L Seg Neutrophils # Man 9.4 H Lymphocytes # (Manual) 0.1 L POC ABG pH POC ABG pCO2 Sodium 134 L Chloride 95.4 L BUN 48 H Creatinine 1.9 H Glucose 135 H POC Glucose Lactic Acid Albumin 3.2 L Urine WBC (Auto) 24.0 H 08/12/17 08/12/17 08/12/17 18:53 18:59 21:57 WBC Plt Count Lymphocytes % (Manual) Seg Neutrophils # Man Lymphocytes # (Manual) POC ABG pH POC ABG pCO2 Sodium Chloride BUN Creatinine Glucose POC Glucose 149 H 189 H Lactic Acid 3.10 H* Albumin Urine WBC (Auto) 08/12/17 08/12/17 08/13/17 22:46 23:04 04:27 WBC Plt Count Lymphocytes % (Manual) Seg Neutrophils # Man Lymphocytes # (Manual) POC ABG pH 7.254 L 7.337 L POC ABG pCO2 34.5 L Sodium Chloride BUN Creatinine Glucose POC Glucose Lactic Acid 2.90 H* Albumin Urine WBC (Auto) - Diagnostic Findings Chest x-ray: report reviewed, image reviewed Assessment and Plan Acute respiratory failure. Probably secondary to sepsis/pneumonia and perhaps context of COPD. Sepsis, severe Right lower lobe pneumonia with volume loss AG metabolic acidosis, lactic COPD with exacerbation Dementia Protein caloric malnutrition Recommendations SC B/C q 15 min x 2 U Legionella, S.pneumonia ag Ceftriazone 1-2 g qd IV/Azithromycin 500 mg qd IV or Levaquin 750 mg qd if no allergies or contraindications Review antibiotic treatment once cultures available and de-escalate if appropriate f/u hospital ventilator bundle, Mechanical ventilation support, adjust FiO2 with goal of maintaining oximetry at or above 92% Titrate PEEP up to maintain oximetry of the above oximetry level Set tidal Volume set initially at 6-8 cm PBW for EMI protection Keep PIP < 30 Sedation as needed for patient comfort, adjust to RASS -1 to - 3 . Currently doing SBT assessment with consideration to a minimum and see how this goes Maintain extubation precautions If unsuccessful, daily morning sedation vacation and initiate SBT if deemed appropriate DVT prophylaxis PPI prophylaxis Zheng Amaya Discussed with staff in detail.
[2017-08-13] MEDS ORDERED: SIMPLE SYRUP FEEDTUBE PRN ×2 (13:22)
[2017-08-13] MEDS ORDERED: PANCREAZE DR 10,500 UNIT FEEDTUBE PRN (13:22)
[2017-08-13] MEDS ORDERED: SODIUM BICARBONATE FEEDTUBE PRN (13:22)
[2017-08-13] MEDS: cefTRIAXone 1 GM in NACL 0.9% 20 ML IV SCH (13:24)
[2017-08-13] MEDS: NACL 0.9% 1000 ML 1,000 ML IV SCH ×2 (13:27)
--- NOTE | 2017-08-13 15:39 | Progress Note ---
Assessment and Plan Assessment and plan: 77 YO Male Halfway Resident with Dementia, Debility, HTN, CVA with RHP, COPD presents to ED for evaluation. Pt confused and unable to provide detailed history. Pt history taken from ED staff, EMS, and family who is at bedside. As per family, the patient has experienced progressive confusion and weakness over the past 3 weeks, with worsening symptoms over the past 5 days which resulted in a fall 5 days ago. Pt sustained contusion with ecchymosis to the right forehead and cheek. Pt seen and evaluated in ED and found to have evidence of sepsis suspected secondary to RLL Pneumonia, UTI and Acute Renal Failure. Pt is confused but is able to protect his airway. Pt initiated on Sepsis protocol. and admitted to the medical floor. But later in the night the patient become more drowsy and was not able to take care of his airways, desaturating, code med was called , patient intubated and transferred to the floor. Acute hypoxic respiratory failure - Patient is intubated and on mechanical ventilation - Likely due to his underlying pneumonia and COPD - Pulmonary following Sepsis due to right lower lobe pneumonia/aspiration pneumonia, UTI - Patient was treated according to sepsis protocol with IV antibiotics and IV fluids Lactic acidosis due to the above Acute renal failure - on IV fluid monitor BMP Acute metabolic encephalopathy - Treat underlying cause - Supportive care, improving DVT prophylaxis - on heparin Disposition - Continue inpatient care The high probability of a clinically significant, sudden or life threatening deterioration of the [respiratory, neurology] system(s) required my full and direct attention, intervention and personal management. The aggregate critical care time was [35] minutes. This time is in addition to time spent performing reported procedures but includes the following: [x] Data Review and interpretation [x] Patient assessment and monitoring of vital signs [x] Documentation [x] Medication orders and management History Interval history: Patient was seen and evaluated this morning, patient was intubated and on mechanical ventilation. Hospitalist Physical - Physical exam Narrative exam: Patient is intubated, he is alert but unable to talk because of the tube. The patient appeared well nourished and normally developed. Vital signs as documented. Head exam is unremarkable. No scleral icterus . Neck is without jugular venous distension, thyromegaly, or carotid bruits. Lungs are clear to auscultation. Cardiac exam reveals regular rate and Rhythm. First and second heart sounds normal. No murmurs, rubs or gallops. Abdominal exam reveals normal bowel sounds, no masses, no organomegaly and no aortic enlargement. Extremities are nonedematous and both femoral and pedal pulses are normal. LIEUTENANT COLONEL: Alert but unable to talk because of the tube . - Constitutional Vitals: Temp Pulse Resp BP Pulse Ox 97.7 F 76 14 118/61 100 08/13/17 08:00 08/13/17 14:41 08/13/17 14:41 08/13/17 14:41 08/13/17 14:41 General appearance: Present: mild distress Results - Labs CBC & Chem 7: 08/12/17 17:18 08/12/17 17:18 Labs: Laboratory Last Values WBC 13.4 K/mm3 (4.5-11.0) H 08/12/17 17:18 RBC 4.07 M/mm3 (3.65-5.03) 08/12/17 17:18 Hgb 12.3 gm/dl (11.8-15.2) 08/12/17 17:18 Hct 38.1 % (35.5-45.6) 08/12/17 17:18 MCV 94 fl (84-94) 08/12/17 17:18 MCH 30 pg (28-32) 08/12/17 17:18 MCHC 32 % (32-34) 08/12/17 17:18 RDW 14.2 % (13.2-15.2) 08/12/17 17:18 Plt Count 132 K/mm3 (140-440) L 08/12/17 17:18 Add Manual Diff Complete 08/12/17 17:18 Total Counted 100 08/12/17 17:18 Seg Neutrophils % Director Phone 08/12/17 17:18 Seg Neuts % (Manual) 70.0 % (40.0-70.0) 08/12/17 17:18 Band Neutrophils % 25.0 % 08/12/17 17:18 Lymphocytes % (Manual) 1.0 % (13.4-35.0) L 08/12/17 17:18 Reactive Lymphs % (Man) 0 % 08/12/17 17:18 Monocytes % (Manual) 4.0 % (0.0-7.3) 08/12/17 17:18 Eosinophils % (Manual) 0 % (0.0-4.3) 08/12/17 17:18 Basophils % (Manual) 0 % (0.0-1.8) 08/12/17 17:18 Metamyelocytes % 0 % 08/12/17 17:18 Myelocytes % 0 % 08/12/17 17:18 Promyelocytes % 0 % 08/12/17 17:18 Blast Cells % 0 % 08/12/17 17:18 Nucleated RBC % Not Reportable 08/12/17 17:18 Seg Neutrophils # Man 9.4 K/mm3 (1.8-7.7) H 08/12/17 17:18 Band Neutrophils # 3.4 K/mm3 08/12/17 17:18 Lymphocytes # (Manual) 0.1 K/mm3 (1.2-5.4) L 08/12/17 17:18 Abs React Lymphs (Man) 0.0 K/mm3 08/12/17 17:18 Monocytes # (Manual) 0.5 K/mm3 (0.0-0.8) 08/12/17 17:18 Eosinophils # (Manual) 0.0 K/mm3 (0.0-0.4) 08/12/17 17:18 Basophils # (Manual) 0.0 K/mm3 (0.0-0.1) 08/12/17 17:18 Metamyelocytes # 0.0 K/mm3 08/12/17 17:18 Myelocytes # 0.0 K/mm3 08/12/17 17:18 Promyelocytes # 0.0 K/mm3 08/12/17 17:18 Blast Cells # 0.0 K/mm3 08/12/17 17:18 WBC Morphology Not Reportable 08/12/17 17:18 Hypersegmented Neuts Not Reportable 08/12/17 17:18 Hyposegmented Neuts Not Reportable 08/12/17 17:18 Hypogranular Neuts Not Reportable 08/12/17 17:18 Smudge Cells Not Reportable 08/12/17 17:18 Toxic Granulation Not Reportable 08/12/17 17:18 Toxic Vacuolation Not Reportable 08/12/17 17:18 Dohle Bodies Not Reportable 08/12/17 17:18 Pelger-Huet Anomaly Not Reportable 08/12/17 17:18 Hugh Rods Not Reportable 08/12/17 17:18 Platelet Estimate Consistent w auto 08/12/17 17:18 Clumped Platelets Not Reportable 08/12/17 17:18 Plt Clumps, EDTA Not Reportable 08/12/17 17:18 Large Platelets Not Reportable 08/12/17 17:18 Giant Platelets Not Reportable 08/12/17 17:18 Platelet Satelliting Not Reportable 08/12/17 17:18 Plt Morphology Comment Not Reportable 08/12/17 17:18 RBC Morphology Normal 08/12/17 17:18 Dimorphic RBCs Not Reportable 08/12/17 17:18 Polychromasia Not Reportable 08/12/17 17:18 Hypochromasia Not Reportable 08/12/17 17:18 Poikilocytosis Not Reportable 08/12/17 17:18 Anisocytosis Not Reportable 08/12/17 17:18 Microcytosis Not Reportable 08/12/17 17:18 Macrocytosis Not Reportable 08/12/17 17:18 Spherocytes Not Reportable 08/12/17 17:18 Pappenheimer Bodies Not Reportable 08/12/17 17:18 Sickle Cells Not Reportable 08/12/17 17:18 Target Cells Not Reportable 08/12/17 17:18 Tear Drop Cells Not Reportable 08/12/17 17:18 Ovalocytes Not Reportable 08/12/17 17:18 Helmet Cells Not Reportable 08/12/17 17:18 Covarrubias-Cogdell Bodies Not Reportable 08/12/17 17:18 Albion Rings Not Reportable 08/12/17 17:18 Burley Cells Not Reportable 08/12/17 17:18 Bite Cells Not Reportable 08/12/17 17:18 Crenated Cell Not Reportable 08/12/17 17:18 Elliptocytes Not Reportable 08/12/17 17:18 Acanthocytes (Spur) Not Reportable 08/12/17 17:18 Rouleaux Not Reportable 08/12/17 17:18 Hemoglobin C Crystals Not Reportable 08/12/17 17:18 Schistocytes Not Reportable 08/12/17 17:18 Malaria parasites Not Reportable 08/12/17 17:18 Zacarias Bodies Not Reportable 08/12/17 17:18 Hem Pathologist Commnt No 08/12/17 17:18 POC ABG pH 7.337 (7.35-7.45) L 08/13/17 04:27 POC ABG pCO2 34.5 (35-45) L 08/13/17 04:27 POC ABG pO2 105 (80-105) 08/13/17 04:27 POC ABG HCO3 18.5 08/13/17 04:27 POC ABG Total CO2 20 08/13/17 04:27 POC ABG O2 Sat 98 08/13/17 04:27 POC ABG Base Excess -7 08/13/17 04:27 FiO2 80 % 08/13/17 04:27 Sodium 134 mmol/L (137-145) L 08/12/17 17:18 Potassium 4.3 mmol/L (3.6-5.0) 08/12/17 17:18 Chloride 95.4 mmol/L (98-107) L 08/12/17 17:18 Carbon Dioxide 22 mmol/L (22-30) 08/12/17 17:18 Anion Gap 21 mmol/L 08/12/17 17:18 BUN 48 mg/dL (9-20) H 08/12/17 17:18 Creatinine 1.9 mg/dL (0.8-1.5) H 08/12/17 17:18 Estimated GFR 35 ml/min 08/12/17 17:18 BUN/Creatinine Ratio 25 % 08/12/17 17:18 Glucose 135 mg/dL (75-100) H 08/12/17 17:18 POC Glucose 189 (70-105) H 08/12/17 21:57 Lactic Acid 1.40 mmol/L (0.7-2.0) 08/13/17 01:16 Calcium 8.7 mg/dL (8.4-10.2) 08/12/17 17:18 Total Bilirubin 0.40 mg/dL (0.1-1.2) 08/12/17 17:18 AST 26 units/L (5-40) 08/12/17 17:18 ALT 29 units/L (7-56) 08/12/17 17:18 Alkaline Phosphatase 108 units/L (35-129) 08/12/17 17:18 Total Protein 6.4 g/dL (6.3-8.2) 08/12/17 17:18 Albumin 3.2 g/dL (3.9-5) L 08/12/17 17:18 Albumin/Globulin Ratio 1.0 % 08/12/17 17:18 TSH 1.340 mlU/mL (0.270-4.200) 08/12/17 17:18 Urine Color Yellow (Yellow) 08/12/17 16:50 Urine Turbidity Clear (Clear) 08/12/17 16:50 Urine pH 5.0 (5.0-7.0) 08/12/17 16:50 Ur Specific [place] 1.019 (1.003-1.030) 08/12/17 16:50 Urine Protein 100 mg/dl mg/dL (Negative) 08/12/17 16:50 Urine Glucose (UA) 50 mg/dL (Negative) 08/12/17 16:50 Urine Ketones Neg mg/dL (Negative) 08/12/17 16:50 Urine Blood Mod (Negative) 08/12/17 16:50 Urine Nitrite Neg (Negative) 08/12/17 16:50 Urine Bilirubin Neg (Negative) 08/12/17 16:50 Urine Urobilinogen < 2.0 mg/dL (<2.0) 08/12/17 16:50 Ur Leukocyte Esterase Sm (Negative) 08/12/17 16:50 Urine WBC (Auto) 24.0 /HPF (0.0-6.0) H 08/12/17 16:50 Urine RBC (Auto) 13.0 /HPF (0.0-6.0) 08/12/17 16:50 Urine Bacteria (Auto) 4+ /HPF (Negative) 08/12/17 16:50 Urine Mucus 3+ /HPF 08/12/17 16:50 Urine Opiates Screen Presumptive negative 08/12/17 16:50 Urine Methadone Screen Presumptive negative 08/12/17 16:50 Ur Barbiturates Screen Presumptive negative 08/12/17 16:50 Ur Phencyclidine Scrn Presumptive negative 08/12/17 16:50 Ur Amphetamines Screen Presumptive negative 08/12/17 16:50 U Benzodiazepines Scrn Presumptive negative 08/12/17 16:50 Urine Cocaine Screen Presumptive negative 08/12/17 16:50 U Marijuana (THC) Screen Presumptive negative 08/12/17 16:50 Drugs of Abuse Note Disclamer 08/12/17 16:50 Plasma/Serum Alcohol < 0.01 % (0-0.07) 08/12/17 17:18
--- NOTE | 2017-08-13 16:19 | XRay Report ---
FINAL REPORT EXAM: XR ABDOMEN 1V AP HISTORY: confirm placement TECHNIQUE: KUB(s) view of upper abdomen. PRIORS: None. FINDINGS: Enteric tube tip projects at or slightly below the diaphragm and should be advanced somewhat. Nonspecific bowel gas pattern. Bowel gas pattern grossly unremarkable. Vascular calcifications projected upper abdomen. Osseous structures grossly unremarkable. IMPRESSION: 1. Enteric tube position as reported. 2. Nonspecific bowel gas pattern, which may represent adynamic ileus. Followup may be warranted.
--- NOTE | 2017-08-13 21:46 | XRay Report ---
FINAL REPORT EXAM: XR ABDOMEN 1V AP HISTORY: confirmation of NG tube TECHNIQUE: KUB(s) view of upper abdomen. PRIORS: Earlier on same date at 1642 hours. FINDINGS: Enteric tube has been partially advanced and extends below the diaphragm, with tip partially coiled and projected over left upper quadrant and stomach region. Bowel gas pattern stable. No apparent pneumoperitoneum. Osseous structures grossly unremarkable. IMPRESSION: 1. Enteric tube position as reported. 2. Otherwise, stable.
[2017-08-13] MEDS: HEPARIN SUB-Q SCH (22:18)
--- NOTE | 2017-08-13 22:53 | XRay Report ---
FINAL REPORT EXAM: XR ABDOMEN 1V AP HISTORY: ft placement, pt pulled out previous one TECHNIQUE: KUB(s) view of abdomen. PRIORS: Earlier on same date at 2018 hours. FINDINGS: Enteric tube tip extends approximately 7 cm below the diaphragm, projects over left upper quadrant and may be advanced somewhat. Bowel gas pattern stable. No apparent pneumoperitoneum. Osseous structures grossly unremarkable. IMPRESSION: 1. Enteric tube position as reported. 2. Otherwise, stable.
[2017-08-13] MEDS ORDERED: VERSED IV ONE (23:00)
[2017-08-14] MEDS: DIPRIVAN 10 MG/ML 1,000 MG/100 ML BOTTLE IV SCH (02:06)
[2017-08-14] MEDS: NACL 0.9% 1000 ML 1,000 ML IV SCH (02:09)
[2017-08-14 04:45] LABS: Hemoglobin 10.8 gm/dl (11.8-15.2); Mean Corpuscular HGB Conc 34 % (32-34); Mean Corpuscular Hemoglobin 32 pg (28-32); Mean Corpuscular Volume 93 fl (84-94); Platelet Count 117 K/mm3 (140-440); Red Blood Count 3.43 M/mm3 (3.65-5.03)
[2017-08-14 05:08] LABS: Calcium 8.1 mg/dL (8.4-10.2)
[2017-08-14 08:25] LABS: Basophils % (Manual) 0 % (0.0-1.8); Eosinophils % (Manual) 0 % (0.0-4.3); Total Cells Counted 100
[2017-08-14 08:26] LABS: RBC Morphology Normal
--- NOTE | 2017-08-14 09:39 | Progress Note ---
Assessment and Plan Acute respiratory failure. Probably secondary to sepsis/pneumonia and perhaps context of COPD. rapid shallow breathing index now in the 20s, spontaneous tidal volume 300 400 Sepsis, severe. Apprears controlled Right lower lobe pneumonia ,on ABX AG metabolic acidosis, lactic COPD with exacerbation Dementia Protein caloric malnutrition Recommendations U Legionella, S.pneumonia ag Continue ABX SBT re-assessment on 8/5 cm H2O. He tolerated extubate patient. May need BiPAP after extubation, discussed with respiratory therapy Maintain extubation precautions DVT prophylaxis PPI prophylaxis Condom Amaya Discussed with staff in detail. The need for also by nursing staff got family members may be coming in to change CODE STATUS today, to DO NOT RESUSCITATE or comfort measures. They will meet with hospitalist later on this morning Critical care time was 31 minutes of [id number] evaluation and coordination of care Subjective Date of service: 08/14/17 Principal diagnosis: ARF/MV, sepsis,BKP Interval history: Discomfort reported with endotracheal tube. Objective Vital Signs - 12hr 08/13/17 08/13/17 08/13/17 21:45 22:01 22:15 Temperature Pulse Rate 124 H 121 H 120 H Respiratory 14 16 13 Rate Blood Pressure 112/61 116/67 O2 Sat by Pulse 99 100 100 Oximetry 08/13/17 08/13/17 08/13/17 22:30 22:45 23:00 Temperature Pulse Rate 110 H 124 H 120 H Respiratory 16 21 21 Rate Blood Pressure 113/73 105/75 112/73 O2 Sat by Pulse 100 100 100 Oximetry 08/13/17 08/13/17 08/13/17 23:15 23:30 23:38 Temperature Pulse Rate 117 H 118 H 109 H Respiratory 21 16 Rate Blood Pressure 114/61 123/70 114/61 O2 Sat by Pulse 100 100 100 Oximetry 08/13/17 08/13/17 08/14/17 23:44 23:45 00:00 Temperature 98.0 F Pulse Rate 102 H 112 H 113 H Respiratory 16 20 21 Rate Blood Pressure 123/70 114/61 118/64 O2 Sat by Pulse 100 100 100 Oximetry 08/14/17 08/14/17 08/14/17 00:15 00:30 00:45 Temperature Pulse Rate 104 H 115 H 121 H Respiratory 14 22 20 Rate Blood Pressure 111/65 107/70 120/69 O2 Sat by Pulse 100 100 100 Oximetry 08/14/17 08/14/17 08/14/17 01:00 01:15 01:30 Temperature Pulse Rate 113 H 107 H 109 H Respiratory 17 20 21 Rate Blood Pressure 118/68 108/71 118/70 O2 Sat by Pulse 99 99 100 Oximetry 08/14/17 08/14/17 08/14/17 01:45 02:00 02:15 Temperature Pulse Rate 120 H 139 H 139 H Respiratory 21 17 21 Rate Blood Pressure 113/66 113/66 109/70 O2 Sat by Pulse 100 100 100 Oximetry 08/14/17 08/14/17 08/14/17 02:31 02:45 03:01 Temperature Pulse Rate 130 H 113 H 121 H Respiratory 24 21 21 Rate Blood Pressure 120/70 123/75 112/70 O2 Sat by Pulse 100 100 99 Oximetry 08/14/17 08/14/17 08/14/17 03:15 03:19 03:30 Temperature Pulse Rate 118 H 138 H 132 H Respiratory 22 21 Rate Blood Pressure 121/59 121/59 117/64 O2 Sat by Pulse 100 99 100 Oximetry 08/14/17 08/14/17 08/14/17 03:45 04:00 04:01 Temperature 97.9 F Pulse Rate 141 H 134 H Respiratory 21 21 Rate Blood Pressure 115/63 119/65 O2 Sat by Pulse 99 97 Oximetry 08/14/17 08/14/17 08/14/17 04:12 04:15 04:31 Temperature Pulse Rate 127 H 121 H Respiratory 21 21 21 Rate Blood Pressure 109/71 112/71 O2 Sat by Pulse 97 98 Oximetry 08/14/17 08/14/17 08/14/17 04:45 05:01 05:15 Temperature Pulse Rate 107 H 125 H 129 H Respiratory 20 19 20 Rate Blood Pressure 114/68 118/64 120/61 O2 Sat by Pulse 99 99 98 Oximetry 08/14/17 08/14/17 08/14/17 05:30 05:45 06:00 Temperature Pulse Rate 116 H 101 H 99 H Respiratory 20 21 20 Rate Blood Pressure 120/68 111/60 98/52 O2 Sat by Pulse 98 99 99 Oximetry 08/14/17 08/14/17 08/14/17 06:20 07:30 08:00 Temperature 98.5 F Pulse Rate 110 H Respiratory 20 Rate Blood Pressure 124/73 O2 Sat by Pulse 96 Oximetry Constitutional: no acute distress, alert, appears uncomfortable, other ( intubated intubated) Eyes: non-icteric ENT: oropharynx moist Neck: supple, no JVD Ascultation: Right: rales, rhonchi, Left: clear Cardiovascular: regular rate and rhythm Gastrointestinal: normoactive bowel sounds, non-distended Integumentary: normal Extremities: no cyanosis Neurologic: non-focal exam, other (on 4 point restraints, RASS 0 to -1) CBC and BMP: 08/14/17 03:51 08/14/17 03:51 ABG, PT/INR, D-dimer: ABG POC ABG pH 7.369 (7.35-7.45) 08/14/17 03:32 POC ABG pCO2 27.8 (35-45) L 08/14/17 03:32 POC ABG pO2 98 (80-105) 08/14/17 03:32 POC ABG HCO3 16.1 08/14/17 03:32 POC ABG Total CO2 17 08/14/17 03:32 POC ABG O2 Sat 98 08/14/17 03:32 Abnormal lab findings: Abnormal Labs 08/12/17 08/12/17 08/12/17 16:50 17:18 17:18 WBC 13.4 H RBC Hgb Hct Plt Count 132 L Seg Neuts % (Manual) Lymphocytes % (Manual) 1.0 L Seg Neutrophils # Man 9.4 H Lymphocytes # (Manual) 0.1 L POC ABG pH POC ABG pCO2 Sodium 134 L Chloride 95.4 L Carbon Dioxide BUN 48 H Creatinine 1.9 H Glucose 135 H POC Glucose Lactic Acid Calcium Albumin 3.2 L Urine WBC (Auto) 24.0 H 08/12/17 08/12/17 08/12/17 18:53 18:59 21:57 WBC RBC Hgb Hct Plt Count Seg Neuts % (Manual) Lymphocytes % (Manual) Seg Neutrophils # Man Lymphocytes # (Manual) POC ABG pH POC ABG pCO2 Sodium Chloride Carbon Dioxide BUN Creatinine Glucose POC Glucose 149 H 189 H Lactic Acid 3.10 H* Calcium Albumin Urine WBC (Auto) 08/12/17 08/12/17 08/13/17 22:46 23:04 04:27 WBC RBC Hgb Hct Plt Count Seg Neuts % (Manual) Lymphocytes % (Manual) Seg Neutrophils # Man Lymphocytes # (Manual) POC ABG pH 7.254 L 7.337 L POC ABG pCO2 34.5 L Sodium Chloride Carbon Dioxide BUN Creatinine Glucose POC Glucose Lactic Acid 2.90 H* Calcium Albumin Urine WBC (Auto) 08/14/17 08/14/17 08/14/17 03:32 03:51 03:51 WBC RBC 3.43 L Hgb 10.8 L Hct 32.0 L D Plt Count 117 L Seg Neuts % (Manual) 89.0 H Lymphocytes % (Manual) 7.0 L Seg Neutrophils # Man 9.7 H Lymphocytes # (Manual) 0.8 L POC ABG pH POC ABG pCO2 27.8 L Sodium Chloride Carbon Dioxide 17 L BUN 54 H Creatinine 1.9 H Glucose POC Glucose Lactic Acid Calcium 8.1 L Albumin Urine WBC (Auto)
[2017-08-14] MEDS ORDERED: PEPCID PO SCH (10:00)
[2017-08-14] MEDS: HEPARIN SUB-Q SCH (10:30)
[2017-08-14] MEDS: ZITHROMAX 500 MG in NACL 0.9% 250ML 250 ML IV SCH (10:30)
[2017-08-14] MEDS: cefTRIAXone 1 GM in NACL 0.9% 20 ML IV SCH (10:30)
[2017-08-14] MEDS: PROVENTIL IH SCH ×2 (14:20→20:26)
--- NOTE | 2017-08-14 15:26 | Progress Note ---
Assessment and Plan Assessment and plan: 77 YO Male Halfway Resident with Dementia, Debility, HTN, CVA with RHP, COPD presents to ED for evaluation. Pt confused and unable to provide detailed history. Pt history taken from ED staff, EMS, and family who is at bedside. As per family, the patient has experienced progressive confusion and weakness over the past 3 weeks, with worsening symptoms over the past 5 days which resulted in a fall 5 days ago. Pt sustained contusion with ecchymosis to the right forehead and cheek. Pt seen and evaluated in ED and found to have evidence of sepsis suspected secondary to RLL Pneumonia, UTI and Acute Renal Failure. Pt is confused but is able to protect his airway. Pt initiated on Sepsis protocol. and admitted to the medical floor. But later in the night the patient become more drowsy and was not able to take care of his airways, desaturating, code med was called , patient intubated and transferred to the floor. Acute hypoxic respiratory failure - s/p MV, now extubated to BIPAP - Likely due to his underlying pneumonia and COPD - Pulmonary following Sepsis due to right lower lobe pneumonia/aspiration pneumonia, UTI - Patient was treated according to sepsis protocol with IV antibiotics and IV fluids Lactic acidosis due to the above Acute renal failure - on IV fluid monitor BMP Acute metabolic encephalopathy - Treat underlying cause - Supportive care, improving DVT prophylaxis - on heparin Disposition - Continue inpatient care The high probability of a clinically significant, sudden or life threatening deterioration of the [respiratory, neurology] system(s) required my full and direct attention, intervention and personal management. The aggregate critical care time was [35] minutes. This time is in addition to time spent performing reported procedures but includes the following: [x] Data Review and interpretation [x] Patient assessment and monitoring of vital signs [x] Documentation [x] Medication orders and management Brother and sister made patient DNR,. patient agreed with decision Hospitalist Physical - Constitutional Vitals: Temp Pulse Resp BP Pulse Ox 97.7 F 78 13 108/61 95 08/14/17 12:00 08/14/17 13:48 08/14/17 13:48 08/14/17 13:48 08/14/17 13:48 General appearance: Present: mild distress Results - Labs CBC & Chem 7: 08/14/17 03:51 08/14/17 03:51 Labs: Laboratory Last Values WBC 10.9 K/mm3 (4.5-11.0) 08/14/17 03:51 RBC 3.43 M/mm3 (3.65-5.03) L 08/14/17 03:51 Hgb 10.8 gm/dl (11.8-15.2) L 08/14/17 03:51 Hct 32.0 % (35.5-45.6) L D 08/14/17 03:51 MCV 93 fl (84-94) 08/14/17 03:51 MCH 32 pg (28-32) 08/14/17 03:51 MCHC 34 % (32-34) 08/14/17 03:51 RDW 14.0 % (13.2-15.2) 08/14/17 03:51 Plt Count 117 K/mm3 (140-440) L 08/14/17 03:51 Add Manual Diff Complete 08/14/17 03:51 Total Counted 100 08/14/17 03:51 Seg Neutrophils % Detail Technician 08/14/17 03:51 Seg Neuts % (Manual) 89.0 % (40.0-70.0) H 08/14/17 03:51 Band Neutrophils % 0 % 08/14/17 03:51 Lymphocytes % (Manual) 7.0 % (13.4-35.0) L 08/14/17 03:51 Reactive Lymphs % (Man) 0 % 08/14/17 03:51 Monocytes % (Manual) 4.0 % (0.0-7.3) 08/14/17 03:51 Eosinophils % (Manual) 0 % (0.0-4.3) 08/14/17 03:51 Basophils % (Manual) 0 % (0.0-1.8) 08/14/17 03:51 Metamyelocytes % 0 % 08/14/17 03:51 Myelocytes % 0 % 08/14/17 03:51 Promyelocytes % 0 % 08/14/17 03:51 Blast Cells % 0 % 08/14/17 03:51 Nucleated RBC % Not Reportable 08/14/17 03:51 Seg Neutrophils # Man 9.7 K/mm3 (1.8-7.7) H 08/14/17 03:51 Band Neutrophils # 0.0 K/mm3 08/14/17 03:51 Lymphocytes # (Manual) 0.8 K/mm3 (1.2-5.4) L 08/14/17 03:51 Abs React Lymphs (Man) 0.0 K/mm3 08/14/17 03:51 Monocytes # (Manual) 0.4 K/mm3 (0.0-0.8) 08/14/17 03:51 Eosinophils # (Manual) 0.0 K/mm3 (0.0-0.4) 08/14/17 03:51 Basophils # (Manual) 0.0 K/mm3 (0.0-0.1) 08/14/17 03:51 Metamyelocytes # 0.0 K/mm3 08/14/17 03:51 Myelocytes # 0.0 K/mm3 08/14/17 03:51 Promyelocytes # 0.0 K/mm3 08/14/17 03:51 Blast Cells # 0.0 K/mm3 08/14/17 03:51 WBC Morphology Not Reportable 08/14/17 03:51 Hypersegmented Neuts Not Reportable 08/14/17 03:51 Hyposegmented Neuts Not Reportable 08/14/17 03:51 Hypogranular Neuts Not Reportable 08/14/17 03:51 Smudge Cells Not Reportable 08/14/17 03:51 Toxic Granulation Not Reportable 08/14/17 03:51 Toxic Vacuolation Not Reportable 08/14/17 03:51 Dohle Bodies Not Reportable 08/14/17 03:51 Pelger-Huet Anomaly Not Reportable 08/14/17 03:51 Hugh Rods Not Reportable 08/14/17 03:51 Platelet Estimate Not Reportable 08/14/17 03:51 Clumped Platelets Not Reportable 08/14/17 03:51 Plt Clumps, EDTA Not Reportable 08/14/17 03:51 Large Platelets Not Reportable 08/14/17 03:51 Giant Platelets Not Reportable 08/14/17 03:51 Platelet Satelliting Not Reportable 08/14/17 03:51 Plt Morphology Comment Not Reportable 08/14/17 03:51 RBC Morphology Normal 08/14/17 03:51 Dimorphic RBCs Not Reportable 08/14/17 03:51 Polychromasia Not Reportable 08/14/17 03:51 Hypochromasia Not Reportable 08/14/17 03:51 Poikilocytosis Not Reportable 08/14/17 03:51 Anisocytosis Not Reportable 08/14/17 03:51 Microcytosis Not Reportable 08/14/17 03:51 Macrocytosis Not Reportable 08/14/17 03:51 Spherocytes Not Reportable 08/14/17 03:51 Pappenheimer Bodies Not Reportable 08/14/17 03:51 Sickle Cells Not Reportable 08/14/17 03:51 Target Cells Not Reportable 08/14/17 03:51 Tear Drop Cells Not Reportable 08/14/17 03:51 Ovalocytes Not Reportable 08/14/17 03:51 Helmet Cells Not Reportable 08/14/17 03:51 [place] Bodies Not Reportable 08/14/17 03:51 [place] Rings Not Reportable 08/14/17 03:51 [place] Cells Not Reportable 08/14/17 03:51 Bite Cells Not Reportable 08/14/17 03:51 Crenated Cell Not Reportable 08/14/17 03:51 Elliptocytes Not Reportable 08/14/17 03:51 Acanthocytes (Spur) Not Reportable 08/14/17 03:51 Rouleaux Not Reportable 08/14/17 03:51 Hemoglobin C Crystals Not Reportable 08/14/17 03:51 Schistocytes Not Reportable 08/14/17 03:51 Malaria parasites Not Reportable 08/14/17 03:51 [place] Bodies Not Reportable 08/14/17 03:51 Hem Pathologist Commnt No 08/14/17 03:51 POC ABG pH 7.352 (7.35-7.45) 08/14/17 10:04 POC ABG pCO2 30.2 (35-45) L 08/14/17 10:04 POC ABG pO2 74 (80-105) L 08/14/17 10:04 POC ABG HCO3 16.7 08/14/17 10:04 POC ABG Total CO2 18 08/14/17 10:04 POC ABG O2 Sat 94 08/14/17 10:04 POC ABG Base Excess -9 08/14/17 10:04 FiO2 35 % 08/14/17 10:04 Sodium 142 mmol/L (137-145) D 08/14/17 03:51 Potassium 4.1 mmol/L (3.6-5.0) 08/14/17 03:51 Chloride 106.3 mmol/L (98-107) 08/14/17 03:51 Carbon Dioxide 17 mmol/L (22-30) L 08/14/17 03:51 Anion Gap 23 mmol/L 08/14/17 03:51 BUN 54 mg/dL (9-20) H 08/14/17 03:51 Creatinine 1.9 mg/dL (0.8-1.5) H 08/14/17 03:51 Estimated GFR 35 ml/min 08/14/17 03:51 BUN/Creatinine Ratio 28 % 08/14/17 03:51 Glucose 81 mg/dL (75-100) 08/14/17 03:51 POC Glucose 86 (70-105) 08/13/17 17:43 Lactic Acid 1.40 mmol/L (0.7-2.0) 08/13/17 01:16 Calcium 8.1 mg/dL (8.4-10.2) L 08/14/17 03:51 Total Bilirubin 0.40 mg/dL (0.1-1.2) 08/12/17 17:18 AST 26 units/L (5-40) 08/12/17 17:18 ALT 29 units/L (7-56) 08/12/17 17:18 Alkaline Phosphatase 108 units/L (35-129) 08/12/17 17:18 Total Protein 6.4 g/dL (6.3-8.2) 08/12/17 17:18 Albumin 3.2 g/dL (3.9-5) L 08/12/17 17:18 Albumin/Globulin Ratio 1.0 % 08/12/17 17:18 TSH 1.340 mlU/mL (0.270-4.200) 08/12/17 17:18 Urine Color Yellow (Yellow) 08/12/17 16:50 Urine Turbidity Clear (Clear) 08/12/17 16:50 Urine pH 5.0 (5.0-7.0) 08/12/17 16:50 Ur Specific [place] 1.019 (1.003-1.030) 08/12/17 16:50 Urine Protein 100 mg/dl mg/dL (Negative) 08/12/17 16:50 Urine Glucose (UA) 50 mg/dL (Negative) 08/12/17 16:50 Urine Ketones Neg mg/dL (Negative) 08/12/17 16:50 Urine Blood Mod (Negative) 08/12/17 16:50 Urine Nitrite Neg (Negative) 08/12/17 16:50 Urine Bilirubin Neg (Negative) 08/12/17 16:50 Urine Urobilinogen < 2.0 mg/dL (<2.0) 08/12/17 16:50 Ur Leukocyte Esterase Sm (Negative) 08/12/17 16:50 Urine WBC (Auto) 24.0 /HPF (0.0-6.0) H 08/12/17 16:50 Urine RBC (Auto) 13.0 /HPF (0.0-6.0) 08/12/17 16:50 Urine Bacteria (Auto) 4+ /HPF (Negative) 08/12/17 16:50 Urine Mucus 3+ /HPF 08/12/17 16:50 Urine Opiates Screen Presumptive negative 08/12/17 16:50 Urine Methadone Screen Presumptive negative 08/12/17 16:50 Ur Barbiturates Screen Presumptive negative 08/12/17 16:50 Ur Phencyclidine Scrn Presumptive negative 08/12/17 16:50 Ur Amphetamines Screen Presumptive negative 08/12/17 16:50 U Benzodiazepines Scrn Presumptive negative 08/12/17 16:50 Urine Cocaine Screen Presumptive negative 08/12/17 16:50 U Marijuana (THC) Screen Presumptive negative 08/12/17 16:50 Drugs of Abuse Note Disclamer 08/12/17 16:50 Plasma/Serum Alcohol < 0.01 % (0-0.07) 08/12/17 17:18
[2017-08-14] MEDS: SODIUM CHLORIDE FLUSH SYRINGE 10 ML IV SCH (18:27)
[2017-08-14 19:30] VITALS: BP 129/65
[2017-08-15] MEDS ORDERED: ZITHROMAX PO SCH (10:00)
--- NOTE | 2017-08-15 16:47 | Death Note ---
Note Date of : 08/14/17 Time of : 19:00 Time Pronounced: 19:00 - Preliminary Cause of (problem) (1) Respiratory failure Qualifiers: Chronicity: acute Respiratory failure complication: hypoxia Qualified Code(s): J96.01 - Acute respiratory failure with hypoxia Preliminary cause of (2) Sepsis Qualifiers: Sepsis type: sepsis due to unspecified organism Qualified Code(s): A41.9 - Sepsis, unspecified organism Preliminary cause of (3) Pneumonia Qualifiers: Laterality: right Lung location: lower lobe of lung Preliminary cause of (4) ARF (acute renal failure) Qualifiers: Acute renal failure type: with acute tubular necrosis Qualified Code(s): N17.0 - Acute kidney failure with tubular necrosis Preliminary cause of (5) Encephalopathy Preliminary cause of (6) UTI (urinary tract infection) Qualifiers: Encounter type: initial encounter Preliminary cause of (7) DVT prophylaxis Preliminary cause of
== END 2017-08-14 23:45 | DRG 871 ==
LOC: ED 16:06 → 2B-ACE 19:11 → CC1 22:47
PROVIDERS: ADMIT Internal Medicine; ATTEND Internal Medicine
PROC: 5A1945Z Respiratory Ventilation, 24-96 Consecutive Hours (ICD-10-PCS; principal; 2017-08-12)
PROC: 0BH17EZ Insertion of Endotracheal Airway into Trachea, Via Natural or Artificial Opening (ICD-10-PCS; 2017-08-12)
PROC: 4A033R1 Measurement of Arterial Saturation, Peripheral, Percutaneous Approach (ICD-10-PCS; 2017-08-12)
DX: A41.9 Sepsis, unspecified organism (principal); J96.01 Acute respiratory failure with hypoxia; N17.0 Acute kidney failure with tubular necrosis; G93.41 Metabolic encephalopathy; J18.1 Lobar pneumonia, unspecified organism; N39.0 Urinary tract infection, site not specified; E46 Unspecified protein-calorie malnutrition; Z68.1 Body mass index [BMI] 19.9 or less, adult; J44.1 Chronic obstructive pulmonary disease with (acute) exacerbation; J44.0 Chronic obstructive pulmonary disease with (acute) lower respiratory infection; F03.90 Unspecified dementia, unspecified severity, without behavioral disturbance, psychotic disturbance, mood disturbance, and anxiety; Z86.73 Personal history of transient ischemic attack (TIA), and cerebral infarction without residual deficits; J44.9 Chronic obstructive pulmonary disease, unspecified; S00.83XA Contusion of other part of head, initial encounter; X58.XXXA Exposure to other specified factors, initial encounter; Y93.89 Activity, other specified; Y92.89 Other specified places as the place of occurrence of the external cause; Y99.8 Other external cause status; R65.20 Severe sepsis without septic shock
CPT/HCPCS: 31500; 36415; 36600; 70450; 70486; 71045; 74018; 80048; 80053; 80307; 80320; 81001; 82140; 82803; 82962; 84443; 85007; 85025; 87040; 87070; 87205; 87449; 93005; 93010; 94002; 94003; 94640; 94660; 96361; 96374; G0480; J0456; J0696; J1644; J2250; J2704; J7030; J7040; J7050